=== PATIENT | female | born 1985 | race Caucasian/White ===

== ENCOUNTER 2020-02-17 11:07 | Emergency (ER) | payer MEDICAID ==
[~2020-02-17] VITALS: Ht 165.1 cm; Wt 79.5 kg
[2020-02-17 11:22] VITALS: BP 142/91
== END 2020-02-17 12:22 | disposition home or self-care (01) ==
LOC: ER 11:09
DX: J06.9 Acute upper respiratory infection, unspecified (principal); R05 Cough; R51 Headache; Z20.828 Contact with and (suspected) exposure to other viral communicable diseases; Z88.0 Allergy status to penicillin; Z88.1 Allergy status to other antibiotic agents
CPT/HCPCS: 36415; 99283; U0003

== ENCOUNTER 2023-03-17 10:32 | Day surgery (SDC) | payer MEDICAID ==
[~2023-03-17] VITALS: Ht 165.1 cm; Wt 138.6 kg
[2023-03-17 11:00] VITALS: BP 131/82; PULSE 67; RESP 16
[2023-03-17] MEDS ORDERED: LISI5TAB22 PO (11:21)
[2023-03-17] MEDS ORDERED: SUMA50TA PO (11:21)
[2023-03-17] MEDS ORDERED: ESCI20TA39 PO (11:21)
[2023-03-17] MEDS ORDERED: fentaNYL/PF 50MCG/1 ML 2ML syringe ONE (12:55)
[2023-03-17] MEDS ORDERED: MIDAZolam 1 MG/ML 5ML VIAL ONE (12:56)
[2023-03-17 13:45] VITALS: BP 125/70; PULSE 67; RESP 12; O2SAT 99
[2023-03-17 13:55] VITALS: BP 128/73; PULSE 64; RESP 14; O2SAT 99
[2023-03-17 14:05] VITALS: BP 147/76; PULSE 76; RESP 14; O2SAT 99
[2023-03-17 14:14] VITALS: BP 136/77; PULSE 72; RESP 16; O2SAT 99
== END 2023-03-17 14:15 | disposition home or self-care (01) ==
LOC: GI LAB 10:32
PROVIDERS: ATTEND Internal Medicine Gastroenterology
DX: Z12.11 Encounter for screening for malignant neoplasm of colon (principal); D12.8 Benign neoplasm of rectum; K57.30 Diverticulosis of large intestine without perforation or abscess without bleeding; I10 Essential (primary) hypertension; G47.30 Sleep apnea, unspecified; Z98.890 Other specified postprocedural states; Z90.49 Acquired absence of other specified parts of digestive tract; Z88.0 Allergy status to penicillin; Z88.1 Allergy status to other antibiotic agents; Z80.0 Family history of malignant neoplasm of digestive organs; Z83.71 Family history of colonic polyps
CPT/HCPCS: 45385; 99152; 99153; C1889; J2250; J3010; J7030; Z7512; A4620

== ENCOUNTER 2023-12-30 05:32 | Day surgery (SDC) | payer MEDICAID ==
[2023-12-23 14:16] LABS: BASOPHILS # (AUTO) 0.1 X10'3 (0-0.2); BASOPHILS % (AUTO) 0.6 % (0-1); EOSINOPHILS # (AUTO) 0.1 X10'3 (0-0.9); EOSINOPHILS % (AUTO) 0.9 % (0-6); LYMPHOCYTES # (AUTO) 2.3 X10'3 (1.1-4.8); LYMPHOCYTES % (AUTO) 19.8 % (21-51); MEAN CORPUSCULAR HEMOGLOBIN 23.7 PG (27.0-31.0); MEAN CORPUSCULAR HGB CONC 32.3 g/dL (33.0-36.5); MEAN CORPUSCULAR VOLUME 73.3 FL (78-98); MEAN PLATELET VOLUME 7.9 FL (7.4-10.4); MONOCYTES # (AUTO) 0.6 X10'3 (0-0.9); MONOCYTES % (AUTO) 5.4 % (2-12); NEUTROPHILS # (AUTO) 8.5 X10'3 (1.8-7.7); NEUTROPHILS % (AUTO) 73.3 % (42-75); PRE OP HEMATOCRIT 36.8 % (35.0-45.0); PRE OP HEMOGLOBIN 11.9 g/dL (12.0-16.0); PRE OP PLATELET COUNT 313 X10'3 (140-440); PRE OP WHITE BLOOD COUNT 11.7 10'3 (4.8-10.8); RED BLOOD COUNT 5.01 X10'6 (4.20-5.60); RED CELL DISTRIBUTION WIDTH 17.8 % (11.5-14.5)
[2023-12-23 14:17] LABS: BILIRUBIN,URINE NEGATIVE (Neg); COLOR,URINE YELLOW (Yellow); GLUCOSE, URINE NEGATIVE (Neg); KETONES,URINE TRACE mg/dl (Neg); LEUKOCYTE ESTERASE ,URINE NEGATIVE (Neg); NITRITES, URINE NEGATIVE (Neg); OCCULT BLOOD,URINE NEGATIVE (Neg); PH,URINE 6.5 (4.8-8.0); PROTEIN,URINE NEGATIVE (Neg); UA COLLECTION TYPE CLN CATCH MIDSTREAM; UROBILINOGEN,URINE 0.2 E.U/dL (0.2-1.0)
[2023-12-23 14:18] LABS: URINE HCG NEGATIVE (NEG)
[2023-12-23 14:23] LABS: CLARITY,URINE SLIGHTLY CLOUDY (Clear)
[2023-12-23 14:24] LABS: BACTERIA,URINE FEW /HPF (Neg); MUCUS STRANDS MANY /LPF (Neg); RBC,URINE 0-2 /HPF (0-2); SQUAMOUS EPITHELIAL CELL,UR MANY /LPF (FEW); WBC,URINE 0-4 /HPF (0-4)
[2023-12-23 14:31] LABS: ALBUMIN 3.2 G/DL (3.4-5.0); ALBUMIN/GLOBULIN RATIO 0.7 (1.1-1.5); ALKALINE PHOSPHATASE 82 IU/L (46-116); BLOOD UREA NITROGEN 14 MG/DL (7-18); BUN/CREATININE RATIO 16.7 (10.0-20.0); CALCIUM 8.7 MG/DL (8.5-10.1); CHLORIDE 103 MMOL/L (99-107); CREATININE 0.84 MG/DL (0.40-0.90); PRE OP ALT 42 U/L (30-65); PRE OP ANION GAP 7 (8-16); PRE OP AST 19 U/L (10-37); PRE OP BILIRUB, TOTAL 0.2 MG/DL (0.0-1.0); PRE OP GLUCOSE 109 MG/DL (70-104); PRE OP POTASSIUM 4.1 MMOL/L (3.4-5.1); PRE OP SODIUM 137 MMOL/L (135-145); TOTAL CARBON DIOXIDE 27.5 MMOL/L (24-32); TOTAL PROTEIN 7.5 G/DL (6.4-8.2); eGFR 75 ML/MIN
[~2023-12-30] VITALS: Ht 165.1 cm; Wt 139.2 kg
[2023-12-30] VITALS (7 sets, daily range): BP systolic 111–135; BP diastolic 56–82; PULSE 67–88; RESP 13–16; TEMP 97.2; O2SAT 94–99
[~2023-12-30 05:32] MED LIST: ESCI20TA39 PO; LISI5TAB22 PO
[2023-12-30] MEDS: ringers solution, lacted 1,000 ML IV SCH (06:01)
[2023-12-30] MEDS: famotidine 20mg tablet PO ONE (06:01)
[2023-12-30] MEDS ORDERED: VANCOMYCIN 1,500MG in normal saline IV soln 300 ML IV ONE (06:25)
[2023-12-30] MEDS ORDERED: BUPIVAcaine/PF 2.5mg/ml (0.25%) 10ml vial ONE (06:56)
[2023-12-30] MEDS ORDERED: cloNIDine hcl/PF 100mcg/ml inj ONE (07:09)
[2023-12-30] MEDS ORDERED: propofol inj 20 ML IV ONE (07:13)
[2023-12-30] MEDS ORDERED: fentaNYL/PF 50MCG/1 ML 2ML syringe ONE (07:13)
[2023-12-30] MEDS ORDERED: midazolam 1 mg/ML 2ml injection ONE (07:13)
[2023-12-30] MEDS ORDERED: ROPIVAcaine 0.5% (5mg/ml) 30ml vial ONE (07:14)
[2023-12-30] MEDS ORDERED: sevoflurane 250ml liquid IH ONE (07:16)
[2023-12-30] MEDS ORDERED: dexamethasone sod phosphate 4mg/ml inj. ONE (08:13)
[2023-12-30] MEDS: bacitracin 15gm ointment TP ONE (08:21)
[2023-12-30] MEDS ORDERED: proCHLORperazine 10 MG/2 ml inj IV PRN (08:25)
[2023-12-30] MEDS ORDERED: ondansetron/PF 4mg/2ml inj IV PRN (08:25)
[2023-12-30] MEDS ORDERED: morphine 2 MG/ML inj. syringe IV PRN (08:25)
[2023-12-30] MEDS ORDERED: morphine 4 MG/ML inj SYRINge IV PRN (08:25)
[2023-12-30] MEDS ORDERED: meperidine/PF 25mg/ml syringe IV PRN ×3 (08:25)
[2023-12-30] MEDS ORDERED: ringers solution, lacted 1,000 ML IV SCH (08:25)
[2023-12-30] MEDS ORDERED: ondansetron/PF 4mg/2ml inj ONE (09:04)
== END 2023-12-30 10:13 | disposition home or self-care (01) ==
LOC: PAS 05:32
PROVIDERS: ATTEND Podiatrist Foot & Ankle Surgery
DX: M20.41 Other hammer toe(s) (acquired), right foot (principal); M20.11 Hallux valgus (acquired), right foot; G89.18 Other acute postprocedural pain; I10 Essential (primary) hypertension; E66.9 Obesity, unspecified; F41.9 Anxiety disorder, unspecified; F32.A Depression, unspecified; G47.33 Obstructive sleep apnea (adult) (pediatric); Z79.82 Long term (current) use of aspirin; Z79.891 Long term (current) use of opiate analgesic; Z79.899 Other long term (current) drug therapy; Z90.49 Acquired absence of other specified parts of digestive tract; Z98.891 History of uterine scar from previous surgery; Z68.43 Body mass index [BMI] 50.0-59.9, adult; Z88.0 Allergy status to penicillin; Z88.1 Allergy status to other antibiotic agents
CPT/HCPCS: 28060; 28285; 28737; 28740; 36415; 64445; 64447; 73620; 80053; 81001; 81025; 82948; 85025; 93005; A6223; C1713; J0735; J1100; J2250; J2405; J2704; J2795; J3010; J3370; J3490; J7030; J7040; J7120; Z7506; Z7508; Z7512; 76000; A4215; A4618; A6449; A7000